=== PATIENT | female | born 1955 | race Caucasian/White ===

== ENCOUNTER 2016-06-25 05:11 | Inpatient (IN) | payer OTHER ==
[2016-05-29 14:38] VITALS: BMI 27.0
--- NOTE | 2016-05-29 15:22 | PAT Medication Instructions ---
Service Date May 29, 2016. Current Home Medication List Acetaminophen (Tylenol), 650 MG PO Q4-6HR PRN Albuterol (Ventolin Hfa), PRN PRN for COPD Atorvastatin (Atorvastatin Calcium), 1 TAB PO QAM Duloxetine Hcl (Cymbalta), 90 MG PO QAM Levothyroxine Sodium (Levothyroxine Sodium), 1 TAB PO QAM Lisinopril (Zestril), 2.5 MG PO QAM Nicotine (Nicoderm Cq), 1 PATCH TOP QAM Sitagliptin Phosphate (Januvia), 100 MG PO QAM Tiotropium Convoy (Spiriva Handihaler), 1 CAP INH DAILY PRN PRN for COPD [Nebulizer], Unknown Dose Medication Instructions For Your Scheduled Surgery - Hold the following medications the morning of surgery: Sitagliptin Phosphate (Januvia), 100 MG PO QAM Lisinopril (Zestril), 2.5 MG PO QAM Nicotine (Nicoderm Cq), 1 PATCH TOP QAM - Take the following medications the morning of surgery with a sip of water: Tiotropium Convoy (Spiriva Handihaler), 1 CAP INH DAILY PRN PRN for COPD ( if needed) Nebulizer Unknown Dose (if needed) Albuterol (Ventolin Hfa), PRN PRN for COPD (bring with you to hospital on day of surgery) Levothyroxine Sodium (Levothyroxine Sodium), 1 TAB PO QAM Duloxetine Hcl (Cymbalta), 90 MG PO QAM Acetaminophen (Tylenol), 650 MG PO Q4-6HR PRN (if needed) Atorvastatin (Atorvastatin Calcium), 1 TAB PO QAM - Take the following medications as scheduled the night before surgery: Tiotropium Convoy (Spiriva Handihaler), 1 CAP INH DAILY PRN PRN for COPD ( if needed) Nebulizer Unknown Dose (if needed) Albuterol (Ventolin Hfa), PRN PRN for COPD (if needed) Acetaminophen (Tylenol), 650 MG PO Q4-6HR PRN (if needed) If you have any questions please call us at [phone] or [phone] ( Sarah) or [phone]
[2016-05-29 15:55] LABS: BASO % 0.2 %; BASO ABS # 0.03 K/uL (0-0.2); COMPLETE YES; EOS % 1.5 %; HEMATOCRIT 42.2 % (37-47); IG% 0.3 %; LYMPH % 34.6 %; LYMPH ABS # 4.35 K/uL (1.2-3.4); MEAN CELL VOLUME 86.1 fL (80-100); MEAN CORPUSCULAR HEMOGLOBIN 30.2 pg (25-34); MEAN CORPUSCULAR HGB CONC 35.1 g/dl (32-36); MEAN PLATELET VOLUME 10.8 fL (7.4-10.4); NEUT % 57.4 %; PLATELET COUNT 414 K/uL (130-400); WHITE BLOOD COUNT 12.58 K/uL (4.8-10.8)
[2016-05-29 16:01] LABS: URINE APPEARANCE CLEAR (CLEAR); URINE BILIRUBIN NEG (NEG); URINE COLOR YELLOW; URINE EPITHELIAL CELL AUTO >30 /lpf (0-5); URINE NITRITE NEG (NEG); URINE PH 5.5 (4.5-7.5); URINE SPECIFIC GRAVITY 1.016 (1.000-1.030); UROBILINOGEN NEG (NEG); ZZUR CULT IF INDIC CLEAN CATCH NO
[2016-05-29 16:04] LABS: MANUAL MICROSCOPIC REQUIRED? NO; REVIEW REQ? NO
[2016-05-29 16:08] LABS: PARTIAL THROMBOPLASTIN RATIO 1.1; PROTHROMBIN TIME (PATIENT) 10.7 SECONDS (9.0-12.0)
[2016-05-29 16:22] LABS: BUN/CREATININE RATIO 13.4 (10-20); CALCIUM 9.3 mg/dl (8.5-10.1); CREATININE 0.74 mg/dl (0.60-1.20); POTASSIUM 3.6 mmol/L (3.5-5.1)
--- NOTE | 2016-06-03 18:32 | HISTORY & PHYSICAL EXAMINATION ---
DATE OF ADMISSION: 06/25/2016 CHIEF COMPLAINT: Right hip pain. HISTORY OF PRESENT ILLNESS: This 61-year-old white female presents with complaints of right hip pain that have been ongoing for over a year. Pain was tolerable until December. She is now having difficulty with activities of daily living. Pain is worse with ambulation and weightbearing. It is affecting her sleep. She previously had a left total hip arthroplasty and has done well with this. She elects to proceed with the same on the right. She has tried physical therapy as well as oral pain medications and anti-inflammatories without lasting relief. Preoperative x-rays have been obtained. She elects to proceed with right total hip arthroplasty. PAST MEDICAL HISTORY: Significant for anxiety, diabetes, chronic back pain, osteoarthritis, elevated cholesterol, and hypothyroidism. PREVIOUS SURGERIES: Left total hip replacement in January 2012, discectomy in 1989, cholecystectomy, hysterectomy in 2001, lumbar spine fusion in 2002, and carpal tunnel release in 2014. SOCIAL HISTORY: No ETOH use, occasional tobacco use. The patient lives with her significant other. ALLERGIES: NKDA. KNOWN ALLERGY TO BEE VENOM. CURRENT MEDICATIONS: Atorvastatin 10 mg daily, Cymbalta 30 mg daily, Cymbalta 60 mg daily, Januvia 100 mg p.o. daily, Synthroid 75 mcg p.o. daily, lisinopril 2.5 mg p.o. daily, Nicoderm CQ transdermal patch daily. FAMILY HISTORY: Significant for diabetes and heart disease. REVIEW OF SYSTEMS: Significant for above stated conditions, otherwise unremarkable. PHYSICAL EXAMINATION: GENERAL: Well-developed, well-nourished elderly white female in no acute distress. Sitting on a bed. Alert and oriented. SKIN: Warm and dry with good turgor. No rashes or lesions. No ecchymosis or erythema. HEENT: Normocephalic, atraumatic. Eyes PERRLA, EOMI. Nares patent bilaterally without turbinate enlargement. Oropharynx without erythema or exudate. No lesions noted. Uvula midline. Oral mucosa moist. Upper and lower denture plates are noted. HEART: RRR. No MGR. LUNGS: Clear to auscultation bilaterally. No crackles, rhonchi or wheezing. Fair air movement. ABDOMEN: Mildly obese. Bowel sounds present x4, soft, nontender. No organomegaly. No masses. MUSCULOSKELETAL: Right hip has no obvious asymmetry or deformity. There is discomfort with palpation over the anterior flexion crease. No discomfort with palpation over the quadriceps, greater trochanter, or around the knee. She does have some mild IT band discomfort laterally. External rotation to around 20 degrees, internal rotation of only about 5 degrees, hip flexion to 90 degrees before onset of pain. Ambulatory with a slight limp. NEUROLOGIC: Gross sensation is intact across both lower extremities by soft touch. Peripheral pulses are 2+. Cranial nerves II-XII are intact. DATA: Radiographic imaging previously obtained show end-stage DJD of the right hip. Periarticular osteophytes, subchondral sclerosis, and joint space narrowing are present. IMPRESSION: Right hip end-stage degenerative joint disease. PLAN: Informed written consent was obtained to proceed with right total hip arthroplasty. Postoperative prescriptions for Percocet and Coumadin will be provided at discharge from the hospital. Anticipate discharge to home with 2 weeks of home health services and then outpatient PT. She already has a walker and cane. She will obtain medical clearance from Dr. Romo. LIZBETH
[~2016-06-25] VITALS: Ht 165.1 cm; Wt 74.8 kg
[2016-06-25] VITALS (10 sets, daily range): BP systolic 92–130; BP diastolic 55–83; PULSE 61–88; TEMP 36.5–36.9; O2SAT 94–100; Ht 165.1 cm; Wt 74.8 kg
[~2016-06-25 05:11] MED LIST: ACET-1175 PO; DULO60CA44 PO; LEVO75TA5 PO; LISI-729 PO; LPT10 PO; NEBUMIS38; NICO21DI4 TOP; PRVHFAIN; SITA100T3 PO; SPRIN/30 INH
[2016-06-25] MEDS ORDERED: LACTATED RINGER'S 1000ML IV SCH (06:00)
[2016-06-25] MEDS ORDERED: ROPIVACAINE 5MG/ML 30 ML 150 MG, BUPIVACAINE/EPINEPHR 0.5% MPF 30 ML, KETOROLAC TROMETH... INFIL SCH ×7 (06:00)
[2016-06-25] MEDS ORDERED: TRANEXAMIC ACID INJ 1,000 MG in SODIUM CHLORIDE 0.9% 100ML 100 ML IV SCH ×2 (06:00→14:00)
[2016-06-25] MEDS ORDERED: LACTATED RINGER'S 1000ML 500 ML IV ONE (06:00)
[2016-06-25] MEDS ORDERED: CEFAZOLIN 2000 MG/60 ML D5W 60 ML IV SCH (06:00)
[2016-06-25] MEDS ORDERED: LACTATED RINGER'S 1000ML 1,000 ML IV SCH (06:00)
--- NOTE | 2016-06-25 06:18 | History & Physical Bridge Note ---
H&P Re-Evaluation Bridge Note: I have examined the patient, reviewed the History & Physical and in the interval since the performance of the History & Physical I have noted the following changes of clinical significance: No changes noted
[2016-06-25] MEDS ORDERED: ORTHO JOINT ANESTHETIC ONE (06:34)
[2016-06-25] MEDS ORDERED: POVIDONE-IODINE OP SOLN 30 ML BTL ONE (06:35)
[2016-06-25] MEDS ORDERED: BUPIVACAINE 0.5 % 5 MG/1 ML PF 10ML VIAL ONE (06:40)
[2016-06-25] MEDS ORDERED: MIDAZOLAM HCL 1 MG/ML 2ML VIAL ONE (06:42)
[2016-06-25] MEDS ORDERED: FENTANYL CITRATE INJ 50 MCG/1 ML 2 ML VIAL ONE (07:31)
[2016-06-25] MEDS ORDERED: LIDOCAINE HCL 2% 2 ML VIAL (20MG/ML) ONE (07:36)
[2016-06-25] MEDS ORDERED: PROPOFOL IV EMULSION 10 MG/ML 20 ML VIAL IV ONE (07:36)
[2016-06-25] MEDS ORDERED: PHENYLEPHRINE 100MCG/ML 5ML SYR ONE (08:11)
--- NOTE | 2016-06-25 08:17 | [facility] Post Operative Brief Note ---
Immediate Operative Summary Operative Date Jun 25, 2016. Pre-Operative Diagnosis Right hip end-stage degenerative joint disease Post-Operative Diagnosis Right hip end-stage degenerative joint disease Procedure(s) Performed Right Total Hip Arthroplasty Uncemented Surgeon Dr. Romero Second Crusher Surgeon(s) Bryan Barnes-PAC Estimated Blood Loss 100 ML Findings severe djd Fluids (cc crystalloids) 1600cc Specimens A: Right femoral head Drains none Anesthesia spinal Complication(s) None Disposition Recovery Room / PACU
[2016-06-25] MEDS ORDERED: SODIUM CHLORIDE 0.9% 1000ML 1,000 ML IV SCH (08:22)
[2016-06-25] MEDS ORDERED: ONDANSETRON INJ 2 MG/ML 2 ML VIAL IV PRN (08:30)
[2016-06-25] MEDS ORDERED: DiphenhydrAMINE HCL 50 MG/ML VIAL IV PRN (08:30)
[2016-06-25] MEDS ORDERED: BISACODYL 10 MG SUPP PR PRN (08:30)
[2016-06-25] MEDS ORDERED: MAGNESIUM HYDROXIDE SUSP 30 ML UDC PO PRN (08:30)
[2016-06-25] MEDS ORDERED: ALUMINUM/MAGNESIUM/SIMETH (MAALOX MAX) 30 ML UDC PO PRN (08:30)
[2016-06-25] MEDS ORDERED: MoRPHine SULFATE 2 MG/ML CARP IV PRN (08:30)
[2016-06-25] MEDS ORDERED: METOCLOPRAMIDE HCL INJ 5 MG/ML 2 ML VIAL IV PRN (08:30)
[2016-06-25] MEDS ORDERED: ALBUTEROL HFA 8 GM INHALER INH PRN (08:30)
--- NOTE | 2016-06-25 08:39 | OPERATIVE REPORT ---
DATE OF OPERATION: 06/25/2016 SURGEON: Dr. Romero. DIRECTOR ELECTRICAL ENGINEERING: Eusebio Barnes PA-C. No resident or fellow available. PREOPERATIVE DIAGNOSIS: Osteoarthritis, right hip. POSTOPERATIVE DIAGNOSIS: Same. OPERATION PERFORMED: Noncemented right total hip replacement. SUMMARY OF IMPLANTS: 54 acetabular shell sector cup with Gription, cancellous screw 6.5 x 30, liner 36 x 54 neutral, femoral stem 4 high offset, head is 36, +5. ESTIMATED BLOOD LOSS: 100 mL CRYSTALLOID: 1600 mL DVT prophylaxis per protocol. PERIOPERATIVE SITUATION: Medically cleared female with intractable hip pain, has end-stage disease by exam and by x-ray, wants to proceed with hip replacement. Had hip replacement done on the left side in 2011 and has done fine with that. She is aware of all the complications. PROCEDURE IN DETAIL: The patient appropriately identified, site verified, consent verified, 2 grams of Ancef confirmed as being given. The right lower extremity was prepped and draped in usual routine fashion with the patient in left lateral decubitus position. Posterior approach to the hip was made. Sharp dissection carried to skin and blunt dissection down to the fascia. This was then incised under direct vision. Retractors carefully placed to protect the sciatic nerve. The short external rotators were identified and released. The capsule T'd, hip dislocated, femoral neck resected, appropriate acetabular exposure obtained. Labrum was inverted and torn, it was excised. Serial reaming up to a 54 and a 54 cup impacted into excellent anteversion and inclination. It was then additionally fixed with a 6.5 x 30 screw with excellent purchase. The trial liner then seated. The femur was then flexed and internally rotated. The proximal femur prepared with the boxing machine operator, lateralizing rasp, and serial broaching up to a size 4. Trial reduction with a 4 high offset stem gave excellent leg lengths and excellent stability with a +5 head. All trial implants were then removed. The wound was irrigated with Betadine, Pulsavac. Hole eliminator seated, permanent liner seated, permanent head and stem seated. The hip reduced, it was stable in all planes, and then irrigated one final time with Betadine, Pulsavac, and then closed with 2-0 Vicryl and stainless steel clips, Orthomix injected in the superficial layers. Appropriate dressing applied. The patient was then transferred to the recovery room in satisfactory condition, having tolerated the procedure well. I attest to the content of the Intraoperative Record and any orders documented therein. Any exceptio ns are noted below.
[2016-06-25] MEDS ORDERED: ATROPINE SULFATE 0.1 MG/ML 5ML SYR IV PRN (08:45)
[2016-06-25] MEDS ORDERED: GLUCOSE 40% GEL 15 GM TUBE PO PRN (08:45)
[2016-06-25] MEDS ORDERED: GLUCOSE 10 TABS/TUBE PO PRN (08:45)
[2016-06-25] MEDS ORDERED: EpHEDrine SULFATE INJ 50 MG/ML AMP IV PRN (08:45)
[2016-06-25] MEDS ORDERED: GLUCAGON FOR INJ 1 MG VIAL SQ PRN (08:45)
[2016-06-25] MEDS ORDERED: DEXTROSE 50% 50 ML SYR IV PRN (08:45)
[2016-06-25] MEDS ORDERED: LISINOPRIL 2.5 MG TAB PO SCH (09:00)
--- NOTE | 2016-06-25 09:01 | DIAGNOSTIC IMAGING REPORT ---
SINGLE VIEW PELVIS CLINICAL HISTORY: Postoperative examination. FINDINGS: An AP portable view of the hips and lower pelvis is compared to study dated 07/03/2014. A bipolar right hip arthroplasty is new from previous and in near anatomic alignment. At least 1 cortical lag screw transfixes the acetabular cup. A left hip arthroplasty is unchanged from previous. No acute fracture is seen. There are expected postoperative findings overlying the right hip including skin clips, subcutaneous gas, and soft tissues swelling. Phleboliths are noted in the pelvis. IMPRESSION: Expected postoperative findings status post right hip arthroplasty. No acute fracture is seen. Electronically signed by: Meek Eduardo M.D. 06/25/2016 8:59 AM Dictated Date/Time: 06/25/2016 8:58 AM
--- NOTE | 2016-06-25 09:32 | Anesthesiology Progress Note ---
Anesthesia Post Op Note Date & Time Jun 25, 2016 at 09:31 Vital Signs Pain Intensity: 0 Vital Signs Past 12 Hours Date Time Temp Pulse Resp B/P Pulse Ox O2 Delivery O2 Flow Rate FiO2 06/25/16 09:20 36.4 75 15 102/56 98 Nasal Cannula 2 06/25/16 09:10 66 17 104/54 99 Nasal Cannula 2 06/25/16 09:00 66 15 90/63 100 Nasal Cannula 2 06/25/16 08:50 76 14 88/58 100 Nasal Cannula 2 06/25/16 08:40 67 14 93/59 100 Mask 10 06/25/16 08:30 73 17 131/60 100 Mask 10 06/25/16 08:20 36.2 76 16 108/79 99 Mask 10 06/25/16 05:40 36.7 77 18 121/71 97 Room Air Notes Mental Status: alert / awake / arousable, participated in evaluation Pt Amnestic to Procedure: Yes Nausea / Vomiting: adequately controlled Pain: adequately controlled Airway Patency, RR, SpO2: stable & adequate BP & HR: stable & adequate Hydration State: stable & adequate Neuraxial Anesthesia: was administered, sensory block is resolving Anesthetic Complications: no major complications apparent
--- NOTE | 2016-06-25 10:37 | Medical Consult ---
Consultation Date of Consultation: Jun 25, 2016. Attending Physician: David Romero M.D. Reason for Consultation: Medical management History of Present Illness Patient is a 61 y/o female, with PMHx of anxiety, T2DM, chronic back pain, osteoarthritis, h/o recurrent bronchitis/allergies, HTN, dyslipidemia, and hypothyroidism, s/p right total hip arthroplasty on 06/[address] Romero. Patient states she is feeling well. She ate breakfast with no N/V. She denies any significant pain. No BM/flatus postop. Patient denies any fever, chills, sweats, lightheadedness, dizziness, vision changes, CP, palpitations, edema, SOB , wheezing, cough, abdominal pain, nausea, vomiting, diarrhea, urinary symptoms , melena, numbness/tingling, weakness, muscle/joint pain, anxiety/depression, active bleeding, or new skin discoloration/changes. Past Medical/Surgical History PAST MEDICAL HISTORY: 1. Anxiety 2. T2DM 3. Chronic back pain 4. Osteoarthritis 5. Dyslipidemia 6. Hypothyroidism 7. HTN 8. h/o recurrent bronchitis/allergies PREVIOUS SURGERIES: 1. Left total hip replacement in January 2012 2. Discectomy in 1989 3. Cholecystectomy 4. Hysterectomy in 2001 5. Lumbar spine fusion in 2002 6. Carpal tunnel release in 2014 Family History 1. Diabetes 2. Heart disease Social History Smoking Status: Current Every Day Smoker Allergies Coded Allergies: No Known Allergies (Unverified , 06/25/16) Home Medications Reported Home Medications Medications Dose Route/Sig Max Daily Dose Days Date Category Dose Instructions Ventolin Hfa (Albuterol) 60 Puffs/5400 Mcg Aers PRN PRN 05/29/16 Reported USES ONLY PRN - HASN'T USED IN A LONG TIME Atorvastatin Calcium (Atorvastatin) 10 Mg Tab 1 Tab PO QAM 05/29/16 Reported Zestril (Lisinopril) 5 Mg Tab 2.5 Mg PO QAM 05/29/16 Reported Januvia (Sitagliptin Phosphate) 100 Mg Tab 100 Mg PO QAM 05/29/16 Reported Levothyroxine Sodium 75 Mcg Tab 1 Tab PO QAM 05/29/16 Reported Spiriva Handihaler (Tiotropium [place]) 30 Puff/540 Mcg Aerp 1 Cap INH DAILY PRN PRN 02/12/12 Reported Tylenol (Acetaminophen) 325 Mg Tab 650 Mg PO Q4-6HR PRN 02/12/12 Reported Cymbalta (Duloxetine Hcl) 60 Mg Cap 90 Mg PO QAM 01/19/12 Reported Current Inpatient Medications Current Inpatient Medications Medications (Trade) Dose Ordered Sig/Clary Route Start Time Stop Time Status Last Admin Dose Admin Lactated Ringer's 1,000 ml @ 15 mls/hr Q24H IV 06/25/16 06:00 06/26/16 05:59 06/25/16 06:14 15 MLS/HR Lactated Ringer's 1,000 ml @ 60 mls/hr [id number] IV 06/25/16 06:00 06/25/16 22:39 Cefazolin Sodium 60 ml @ 100 mls/hr PREOP IV 06/25/16 06:00 06/26/16 05:59 06/25/16 06:53 100 MLS/HR Tranexamic Acid 1000 mg/Sodium Chloride 110 ml @ 660 mls/hr TODAY@0600 IV 06/25/16 06:00 06/25/16 16:00 06/25/16 06:22 660 MLS/HR Ropivacaine 150 mg/Bupivacaine HCl/Epinephrine Bitart 30 ml/ Ketorolac Tromethamine 30 mg/Dexamethasone Sodium Phosphate 4 mg/Ketamine HCl 10 mg/Clonidine 100 mcg/Sodium Chloride 30 ml/ Empty Bag 93.2 ml @ 0 mls/hr PREOP INFIL 06/25/16 06:00 06/25/16 16:00 06/25/16 08:00 93.2 MLS/HR Sodium Chloride (Nss 1000ml) 1,000 ml @ 100 mls/hr Q10H IV 06/25/16 08:22 06/26/16 08:21 Ketorolac Tromethamine (Toradol Inj) 30 mg Q6H IV. 06/25/16 12:00 06/26/16 06:01 Oxycodone HCl (Roxicodone Immediate Rel Tab) 1 TABLET FOR PAIN RATING... Q4H PRN PO 06/25/16 08:30 07/09/16 08:29 Morphine Sulfate give 2mg for pain 3-6 g... Q1H PRN IV 06/25/16 08:30 07/09/16 08:29 Acetaminophen/ Empty Bag (Ofirmev Iv/ Empty Iv Bag 100ml) 100 ml @ 400 mls/hr Q8H IV 06/25/16 12:00 06/26/16 04:14 Acetaminophen (Tylenol Tab) 650 mg Q6H PRN PO 06/26/16 04:30 07/26/16 04:29 Magnesium Hydroxide (Milk Of Magnesia Susp) 30 ml Q6H PRN PO 06/25/16 08:30 07/25/16 08:29 Bisacodyl (Dulcolax Supp) 10 mg DAILY PRN AL 06/25/16 08:30 07/25/16 08:29 Docusate Sodium (coLACE CAP) 100 mg BID PO 06/25/16 09:00 07/25/16 08:59 Diphenhydramine HCl (Benadryl Inj) 25 mg Q8H PRN IV 06/25/16 08:30 07/25/16 08:29 Al Hydrox/Mg Hydrox/Simethicone (Maalox Max Susp) 15 ml Q4H PRN PO 06/25/16 08:30 07/25/16 08:29 Multivitamins (Multivitamin Tab) 1 tab QAM PO 06/25/16 09:00 07/25/16 08:59 Ondansetron HCl (Zofran Inj) 4 mg Q6H PRN IV 06/25/16 08:30 07/25/16 08:29 Metoclopramide HCl (Reglan Inj) 10 mg Q6H PRN IV 06/25/16 08:30 07/25/16 08:29 Ferrous Gluconate (Ferrous Gluconate Tab) 324 mg TIDM PO 06/25/16 12:30 07/25/16 12:29 Pantoprazole Sodium 40 mg 40 mg QAM PO 06/25/16 09:00 07/25/16 08:59 Cefazolin Sodium 2000 mg/Dextrose 60 ml @ 100 mls/hr Q8H IV 06/25/16 16:00 06/26/16 00:35 Tranexamic Acid 1000 mg/Sodium Chloride 110 ml @ 660 mls/hr TODAY@1400 IV 06/25/16 14:00 06/25/16 14:09 Dexamethasone Sodium Phosphate/ Syringe (Decadron Inj/ Syringe) 2 ml @ 1 mls/min TODAY@0730 IV 06/26/16 07:30 06/26/16 10:00 Albuterol (Ventolin Hfa Inhaler) 2 puffs Q4 PRN INH 06/25/16 08:30 07/25/16 08:29 Atorvastatin Calcium (Lipitor Tab) 10 mg QAM PO 06/25/16 09:00 07/25/16 08:59 Duloxetine HCl (Cymbalta Cap) 90 mg QAM PO 06/25/16 09:00 07/25/16 08:59 Levothyroxine Sodium (Synthroid Tab) 75 mcg DAILYBB PO 06/26/16 06:00 07/26/16 05:59 Lisinopril (Zestril Tab) 2.5 mg QAM PO 06/25/16 09:00 07/25/16 08:59 Tiotropium [place] (Spiriva Handihaler Inhaler) 1 puff QAM INH 06/25/16 09:00 07/25/16 08:59 Insulin Aspart (novoLOG ASPART) SLIDING SCALE G... ACHS SC 06/25/16 12:00 07/25/16 11:59 Glucose (Glucose 40% Gel) 15-30 GRAMS 15 GRAMS... UD PRN PO 06/25/16 08:45 07/25/16 08:44 Glucose (Glucose Chew Tab) 4-8 Tablets 4 Tabl... UD PRN PO 06/25/16 08:45 07/25/16 08:44 Dextrose (Dextrose 50% 50ML Syringe) 25-50ML OF 50% DW IV FOR... UD PRN IV 06/25/16 08:45 07/25/16 08:44 Glucagon (Glucagon Inj) 1 mg UD PRN SQ 06/25/16 08:45 07/25/16 08:44 Ephedrine Sulfate (EpHEDrine SULFATE INJ) 5 mg Q5M PRN IV 06/25/16 08:45 06/25/16 13:45 Atropine Sulfate (Atropine Sulfate 0.1MG/Ml Inj) 0.5 mg Q1M PRN IV 06/25/16 08:45 06/25/16 13:45 Physical Exam Date Time Temp Pulse Resp B/P Pulse Ox O2 Delivery O2 Flow Rate FiO2 06/25/16 10:16 73 16 114/73 100 Nasal Cannula 2.0 06/25/16 09:20 36.4 75 15 102/56 98 Nasal Cannula 2 06/25/16 09:10 66 17 104/54 99 Nasal Cannula 2 06/25/16 09:00 66 15 90/63 100 Nasal Cannula 2 06/25/16 08:50 76 14 88/58 100 Nasal Cannula 2 06/25/16 08:40 67 14 93/59 100 Mask 10 06/25/16 08:30 73 17 131/60 100 Mask 10 06/25/16 08:20 36.2 76 16 108/79 99 Mask 10 06/25/16 05:40 36.7 77 18 121/71 97 Room Air General Appearance: no apparent distress Head: normocephalic, atraumatic Eyes: normal inspection, PERRL ENT: hearing grossly normal Neck: supple Respiratory/Chest: lungs clear Cardiovascular: regular rate, rhythm Abdomen/GI: normal bowel sounds, non tender, soft Back: normal inspection Extremities/Musculoskelatal: no calf tenderness, no pedal edema, + pertinent finding (TEDs on ) Neurologic/Psych: alert, normal mood/affect, oriented x 3 Skin: normal color, warm/dry, no rash Laboratory Results Last 24 Hours Test 06/25/16 05:50 06/25/16 08:25 Bedside Glucose 253 mg/dl 150 mg/dl Assessment & Plan Patient is a 61 y/o female, with PMHx of anxiety, T2DM, chronic back pain, osteoarthritis, h/o recurrent bronchitis/allergies HTN, dyslipidemia, and hypothyroidism, s/p right total hip arthroplasty on 06/[address] Romero. - DVT prophylaxis, pain management, and PT/OT as per primary team - Follow CBC/PRP T2DM: - Hold Januvia 100 mg daily - BSG ACHS w/ sliding insulin scale - Monitor need for Lantus coverage w/ IV steroids HTN: - Hold Lisinopril pending PRP tomorrow AM - Hydralazine PRN Hypothyroidism: Continue Synthroid 75 mcg daily Dyslipidemia: Continue Lipitor 10 mg daily h/o recurrent bronchitis/allergies, ?underlying COPD w/ smoking history: - Continue Spiriva and Ventolin - O2 protocol, wean as tolerated- does NOT wear O2 supplement at home Tobacco abuse: Denies need for nicotine patch Anxiety: Continue Cymbalta 60 mg daily GI Prophylaxis: Protonix, Maalox PRN, IV Zofran PRN, Colace and/or Milk of Mag PRN DVT prophylaxis: As per primary team Code Status: LEVEL I, FULL Dispo: Discharge as per primary team Thank you for this consultation. We will continue to follow throughout hospital stay.
[2016-06-25] MEDS ORDERED: HydrALAZINE HCL 20 MG/ML VIAL IV. PRN (10:45)
[2016-06-25] MEDS: KETOROLAC TROMETHAMINE 30 MG/ML VIAL IV. SCH ×3 (11:55→23:24)
[2016-06-25] MEDS: ACETAMINOPHEN IV 1,000 MG in EMPTY BAG 0 ML IV SCH ×2 (11:56→19:56)
[2016-06-25] MEDS: TIOTROPIUM BROMIDE 5 PUFF/90 MCG INH INH SCH (11:57)
[2016-06-25] MEDS: MULTIVITAMIN TAB PO SCH (11:58)
[2016-06-25] MEDS: PANTOprazole SOD 40 MG TAB PO SCH (11:58)
[2016-06-25] MEDS: FERROUS GLUCONATE 324 MG TAB PO SCH ×2 (11:59→18:00)
[2016-06-25] MEDS: DULOXETINE (CYMBALTA) 30 MG CAP PO SCH (11:59)
[2016-06-25] MEDS: ATORVASTATIN 10 MG TAB PO SCH (12:00)
[2016-06-25] MEDS: DOCUSATE SODIUM 100 MG CAP PO SCH ×2 (12:00→21:03)
[2016-06-25] MEDS ORDERED: INSULIN GLARGINE PER UNIT 8 UNITS in SYRINGE 0 ML SC ONE (12:30)
--- NOTE | 2016-06-25 12:40 | OPERATIVE REPORT ---
DATE OF OPERATION: 06/25/2016 PREOPERATIVE DIAGNOSIS: Right hip endstage degenerative joint disease. POSTOPERATIVE DIAGNOSIS: Right hip same. PROCEDURE: Right hip total hip arthroplasty using DePuy implants, noncemented. SURGEON: Dr. Romero. FERRIS WHEEL OPERATOR: Eusebio Barnes PA-C. HISTORY OF PRESENT ILLNESS: This 61-year-old white female presented to the office with complaints of intractable right hip pain. She had tried conservative care measures including activity modification, oral pain medication, and use of a cane without success. She elected to proceed with surgical intervention after being educated about potential risks and outcomes. She previously had a left total hip arthroplasty and did very well with that. Preoperative x-rays were obtained. OPERATION: The patient was administered spinal anesthetic and then taken to the operating room where she was given sedation. She was prepped and draped in the usual sterile fashion. Please see Dr. Romero's operative report for specifics of the procedure. I was present for the entire case from initial patient positioning through final wound closure. Assistance was provided in tissue retraction, hemostasis, trial implant placement, final implant placement, and final wound closure. The patient was taken to the recovery room in satisfactory condition. I attest to the content of the Intraoperative Record and any orders documented therein. Any exceptio ns are noted below.
[2016-06-25] MEDS ORDERED: LANTUS PER UNIT CHARGE SQ SCH (12:45)
--- NOTE | 2016-06-25 12:47 | PROGRESS NOTE ---
DATE: 06/25/2016 Postop check, she is doing well status post right total hip replacement. Denies any chest pain, shortness of breath, fever, nausea, vomiting, chills or headache. She is eating her dinner, sitting up. She is very comfortable. Her spinal has worn off. Vital signs are stable. She is afebrile. Neurovascular check, femoral sciatic nerve is excellent. Her hips are located. X-RAYS: AP pelvis and hips reveals well-fixed, well-aligned hip replacement on the right and the old hip replacement is located. ASSESSMENT: Overall doing well. Continue with care pathway. Mobilize tonight. Coumadin per nomogram.
[2016-06-25] MEDS: INSULIN ASPART 100 UNITS/ML 3 ML PEN SC SCH ×3 (13:12→21:14)
[2016-06-25] MEDS: OXYCODONE HCL IR 5 MG TAB (IMMEDIATE RELEASE) PO PRN (15:47)
[2016-06-25] MEDS: CEFAZOLIN IV 2,000 MG in DEXTROSE 5% 50ML 50 ML IV SCH ×2 (15:48→23:23)
[2016-06-25] MEDS ORDERED: WARFARIN SOD 5 MG TAB PO ONE (16:00)
[2016-06-26 03:30] VITALS: BP 107/70; PULSE 79; TEMP 36.6; O2SAT 97
[2016-06-26] MEDS: ACETAMINOPHEN IV 1,000 MG in EMPTY BAG 0 ML IV SCH (03:48)
[2016-06-26] MEDS ORDERED: ACETAMINOPHEN 325 MG TAB PO PRN (04:30)
[2016-06-26] MEDS: KETOROLAC TROMETHAMINE 30 MG/ML VIAL IV. SCH (05:42)
[2016-06-26] MEDS ORDERED: LEVOTHYROXINE 75 MCG TAB PO SCH (06:00)
[2016-06-26 06:10] LABS: BASO % 0.1 %; BASO ABS # 0.02 K/uL (0-0.2); COMPLETE YES; EOS % 0.1 %; HEMATOCRIT 35.4 % (37-47); IG% 0.3 %; LYMPH % 16.2 %; LYMPH ABS # 2.45 K/uL (1.2-3.4); MEAN CELL VOLUME 86.8 fL (80-100); MEAN CORPUSCULAR HEMOGLOBIN 29.7 pg (25-34); MEAN CORPUSCULAR HGB CONC 34.2 g/dl (32-36); MEAN PLATELET VOLUME 10.5 fL (7.4-10.4); MONO % 8.7 %; NEUT % 74.6 %; PLATELET COUNT 318 K/uL (130-400); RED BLOOD COUNT 4.08 M/uL (4.2-5.4); WHITE BLOOD COUNT 15.12 K/uL (4.8-10.8)
[2016-06-26 06:20] LABS: INR 1.1 (0.9-1.1); PROTHROMBIN TIME (PATIENT) 11.3 SECONDS (9.0-12.0)
[2016-06-26 06:53] LABS: BUN/CREATININE RATIO 15.3 (10-20); CALCIUM 9.1 mg/dl (8.5-10.1); CREATININE 0.76 mg/dl (0.60-1.20); POTASSIUM 3.9 mmol/L (3.5-5.1)
[2016-06-26 07:02] VITALS: BP 114/69; PULSE 90; TEMP 36.6; O2SAT 100
--- NOTE | 2016-06-26 07:25 | PROGRESS NOTE ---
DATE: 06/26/2016 Postop day 1 status post right total hip replacement. At this point in time, the patient is comfortable sitting up in bed and has no major issues. Denies chest pain, shortness of breath, fever, chills, nausea, vomiting or headache. Vital signs are stable. She is afebrile. Hip located. Femoral sciatic nerve intact. Calves without any issues. LABORATORY WORK: Hematocrit stable in the 35 range. INR is 1.1. Dressing clean, dry and intact. ASSESSMENT: Doing well. Will discharge after PT, OT today. Dressing changed by PA this morning. Coumadin per nomogram today. Discharge on 4 mg Coumadin daily. Check INR on Thursday.
[2016-06-26] MEDS ORDERED: DEXAMETHASONE INJ 8 MG in SYRINGE 0 ML IV SCH (07:30)
--- NOTE | 2016-06-26 07:34 | DISCHARGE SUMMARY ---
DATE OF DISCHARGE: 06/26/2016 CHIEF COMPLAINT: Right hip pain. HISTORY OF PRESENT ILLNESS: The patient underwent elective right total hip replacement. Her hospital course has been uneventful. She has been ambulatory since last evening. Her pain is well managed. She denies any chest pain, shortness of breath, fever, chills, nausea, vomiting or headache. PAST MEDICAL HISTORY: Remarkable for anxiety, diabetes, chronic back pain, osteoarthritis, hypercholesterolemia and hypothyroidism. PREVIOUS SURGERIES: Include left hip replacement in 2011, discectomy in 1989, cholecystectomy, hysterectomy in 2001, lumbar spine fusion in 2002, carpal tunnel release 2014. SOCIAL HISTORY: Reveals that she does not drink, only uses occasional alcohol. She lives with her significant other. ALLERGIES: None to medications. BEE VENOM ALLERGY. PREADMISSION MEDICATIONS: Include atorvastatin, Cymbalta, Januvia, Synthroid, lisinopril and Nicoderm. She will continue all those medications. Add Coumadin to keep INR 1.8-2.2. Also use p.r.n. pain management, see prescription. FAMILY HISTORY: Remarkable for diabetes and heart disease. REVIEW OF SYSTEMS: Noncontributory. ASSESSMENT: Doing well status post right total hip replacement. PLAN: To discharge today after PT/OT and social service assessment with home health issues. Follow up in 2 weeks for staple removal. Coumadin per nomogram today. Discharge on 4 mg of Coumadin daily. Check INR on Thursday.
--- NOTE | 2016-06-26 08:09 | Progress Note ---
Orthopedic SOAP Note Subjective Date of Service: Jun 26, 2016. Post OP Day: 1 Reports: feeling well, pain controlled w PO medications, Denies: SOB, calf pain , chest pain, complaints, light headedness, nausea / vomiting, using SENIOR DESIGNER Objective calves soft nontender, N/V intact, hip located, capillary refill less than 2 sec., dressing C/D/I, incision C/D/I, A&O x3, toes mobile very pleasant tolerated dressing change well well mobilized Date Time Temp Pulse Resp B/P Pulse Ox O2 Delivery O2 Flow Rate FiO2 06/26/16 07:20 Room Air 06/26/16 07:02 36.6 90 17 114/69 100 Room Air 06/26/16 03:30 36.6 79 16 107/70 97 Room Air 06/25/16 23:50 36.6 69 16 92/55 99 Room Air 104/68 06/25/16 23:18 Room Air 06/25/16 18:53 36.8 86 17 112/71 94 Room Air 06/25/16 15:42 36.8 87 17 124/74 94 Nasal Cannula 3.0 06/25/16 15:24 98 Nasal Cannula 2.0 06/25/16 15:15 Nasal Cannula 2.0 06/25/16 12:41 86 16 130/83 98 Nasal Cannula 2.0 06/25/16 11:47 36.9 88 14 110/63 99 Nasal Cannula 06/25/16 10:49 61 16 113/78 98 Nasal Cannula 2.0 06/25/16 10:16 73 16 114/73 100 Nasal Cannula 2.0 06/25/16 09:45 36.5 70 12 109/68 100 Nasal Cannula 2.0 06/25/16 09:45 Room Air 06/25/16 09:45 Nasal Cannula 06/25/16 09:20 36.4 75 15 102/56 98 Nasal Cannula 2 06/25/16 09:10 66 17 104/54 99 Nasal Cannula 2 06/25/16 09:00 66 15 90/63 100 Nasal Cannula 2 06/25/16 08:50 76 14 88/58 100 Nasal Cannula 2 06/25/16 08:40 67 14 93/59 100 Mask 10 06/25/16 08:30 73 17 131/60 100 Mask 10 06/25/16 08:20 36.2 76 16 108/79 99 Mask 10 Laboratory Results 24 Hours: Test 06/26/16 05:10 White Blood Count 15.12 K/uL Red Blood Count 4.08 M/uL Hemoglobin 12.1 g/dL Hematocrit 35.4 % Mean Corpuscular Volume 86.8 fL Mean Corpuscular Hemoglobin 29.7 pg Mean Corpuscular Hemoglobin Concent 34.2 g/dl Platelet Count 318 K/uL Mean Platelet Volume 10.5 fL Neutrophils (%) (Auto) 74.6 % Lymphocytes (%) (Auto) 16.2 % Monocytes (%) (Auto) 8.7 % Eosinophils (%) (Auto) 0.1 % Basophils (%) (Auto) 0.1 % Neutrophils # (Auto) 11.28 K/uL Lymphocytes # (Auto) 2.45 K/uL Monocytes # (Auto) 1.31 K/uL Eosinophils # (Auto) 0.02 K/uL Basophils # (Auto) 0.02 K/uL Prothromb Time International Ratio 1.1 Prothrombin Time 11.3 SECONDS Assessment post op day 1 s/p Right SUSIE Plan continue post op care DVT prophylaxis Coumadin x 6 weeks target INR 1.8-2.2 discharge home on 4mg Coumadin pain control with prescribed medications total hip precautions PT/OT dressing changed this AM WBAT right lower extremity with walker resume diet ice right hip abduction pillow while in bed discharge home this afternoon with home health
[2016-06-26] MEDS ORDERED: WARF2TAB PO (08:10)
[2016-06-26] MEDS ORDERED: OXYC-57 PO (08:10)
--- NOTE | 2016-06-26 08:11 | Discharge Instructions ---
Discharge Instructions Date of Service Jun 25, 2016. Admission Reason for Admission: Right Hip Osteoarthritis Discharge Discharge Diagnosis / Problem: Right hip s/p total hip replaceement Discharge Goals Goal(s): Decrease discomfort, Improve function, Increase independence Activity Recommendations Activity Limitations: as noted below Lifting Limitations: gradually increase as tolerated Exercise/Sports Limitations: until after follow-up appointment Shower/Bathe: keep incision dry Driving or Machine Use: No driving until cleared by Dr. Romero Weightbearing Status: Right weightbearing (as tolerated) . Instructions / Follow-Up Instructions / Follow-Up New Medicine: * You will likely be taking one or more of these medicines: 1. Percocet - Take, as directed, when you need it, every four to six hours to control your pain. 2. Coumadin - Thins your blood to lessen the chance of forming a blood clot. The dose of this is different for each person and is based on your blood tests that are done twice a week. * The most common side effects of pain medicine and iron are nausea and constipation. If nausea or constipation is too much of a problem or if you have any questions about your new medicines or doses, call [facility] at . We will try to help you manage these issues. VERY IMPORTANT TO READ AND REVIEW" Blood Clots and Blood Thinning Medicine: * You are given Coumadin during the immediate post-operative period to lessen the risk of blood clots forming in your legs and/or lungs. Coumadin is usually given for six weeks after surgery. * The prescription is for 2 mg tablets. At discharge, you should understand your dose and take it all at the same time every day, preferably after dinner. * You need to get your blood checked 1 - 2 times per week for six weeks, or as directed. * If your dose needs to change, we will call you. Do not take your medication on the day of the blood test until we call you. * If you don't hear from us after your blood draws, keep taking the same dose. Pain: * The immediate post-operative period after hip replacement surgery is often quite painful. * You are given a prescription for pain medicine. You should take it, as directed, when you need it, especially before physical therapy and before going to bed. Pain that interferes with sleep is very common and can last several months. * You will likely need pain medicine for the first two to four weeks. It will not stop all of the pain. The pain will lessen and as you feel better, you may change to milder pain medicine such as Tylenol. * The most common side effects of pain medicine are nausea and constipation, so don't take more than you need. Physical Therapy: * Follow the "Hip Precautions Instructions." * In some cases, the social work msw at the hospital will arrange to have a therapist come to your house for the first couple of weeks to help you learn these skills. * You need to practice on your own or with the help of a family member as needed. * When you learn these skills, most of the therapy can be done on your own. Home Exercise: * You were shown a series of exercises in the hospital. Do these exercises three to four times each day including the exercises you were shown in physical therapy. Walking: * Get up and walk several times each day. For the first four weeks, try not to stand or walk for more than one hour at a time. If you do stand or walk for more than one hour, you will not hurt anything, but your leg will likely swell. * As you feel comfortable, you may change from the walker or crutches to a cane and then to independent walking. SELF CARE INSTRUCTIONS AFTER TOTAL HIP REPLACEMENT Until the incision and soft tissues around your hip have healed, there is a possibility that the hip prosthesis could dislocate. A. Observe the following precautions to prevent dislocation: 1. Don't bend your hip greater than 90 degrees. 2. Avoid crossing your legs or ankles while standing or lying. 3. Sit with your feet placed 6 inches apart. 4. When sitting, keep your knees below your hips. Sit on a firm surface, avoid deep, soft chairs and couches. Use an elevated toilet seat in the bathroom. 5. Don't bend over at the waist. Use a long handled shoehorn and a sock aid to help you put on your shoes and socks. A modeling agent can help you cook pickled meat objects that are too high or too low to reach. 6. Keep car riding to a minimum for at least one month after surgery. B. Your balance may be shaky for a while. Use crutches or a walker until directed by your doctor. C. Use hand rails when walking on stairs. D. Wear low heeled shoes with non-slip soles. E. Be sure that your floors are free of things that could trip you - throw rugs , electrical cords, small objects. Avoid wet and waxed floors, especially with crutches and canes. F. Try to walk several times a day with rest periods between. G. Continue with all the exercises taught to you in the hospital. Again, make walking a part of your daily routine. VERY IMPORTANT TO READ AND REVIEW A. Take Coumadin, or Lovenox (blood thinning medications) as directed by your doctor. If you are on Coumadin, have a pro-time (blood test) drawn according to your doctor's instructions. This will tell the doctor how well the Coumadin is thinning your blood. B. There are a few signs you need to watch for after you are home. If you notice any of the followin. Increased severe hip pain. Some pain is expected especially when you exercise. 2. Increased swelling in your leg or knee; pain or swelling of the calf muscle in either lower leg. 3. Any fluid drainage from the incision. 4. Shortness of breath or chest pain. TEDs/Elastic Stockings: * The white elastic stockings help limit swelling and prevent blood clots from forming in your legs. The more you wear them, the more they work. * Wear them for six weeks. Prevention of Infection: * Take antibiotics one hour before any dental cleaning, dental work, urological procedure, gastrointestinal procedure or any invasive surgery in order to prevent your new joint from getting infected. * You may get the antibiotics from the doctor performing the procedure or we will call in a prescription to the pharmacy of your choice. Call the office for a prescription at least 2 days prior to your appointment. Things to Watch For: * Drainage from the incision site that occurs more than one week after your surgery. * Severely increased leg pain or swelling. * Increased redness at the incision site. * Fever above 101 degrees Fahrenheit. * Unusual chest pain or shortness of breath. * Unusual pain or burning with urination. Current Hospital Diet Patient's current hospital diet: Diabetes Type 2 Diet Discharge Diet Recommended Diet: Diabetes Type 2 Diet Procedures Procedures Performed: Right Total Hip Arthroplasty Uncemented Pending Studies Studies pending at discharge: no Medical Emergencies . Who to Call and When: Medical Emergencies: If at any time you feel your situation is an emergency, please call 911 immediately. . Non-Emergent Contact Non-Emergency issues call your: Primary Care Provider, Surgeon Call Non-Emergent contact if: temperature is above 101, wound has increased drainage, wound has increased redness, wound has increased pain . "Provider Documentation" section prepared by Eusebio Barnes PA-C. VTE Core Measure Inpt VTE Proph given/why not?: Warfarin (Coumadin), TPam Stockings, SCD's [place] Drug Monitoring Program Search Results: no issues identified
[2016-06-26] MEDS: FERROUS GLUCONATE 324 MG TAB PO SCH ×2 (08:27→12:41)
[2016-06-26] MEDS: TIOTROPIUM BROMIDE 5 PUFF/90 MCG INH INH SCH (08:28)
[2016-06-26] MEDS: ATORVASTATIN 10 MG TAB PO SCH (08:29)
[2016-06-26] MEDS: MULTIVITAMIN TAB PO SCH (08:29)
[2016-06-26] MEDS: PANTOprazole SOD 40 MG TAB PO SCH (08:29)
[2016-06-26] MEDS: DULOXETINE (CYMBALTA) 30 MG CAP PO SCH (08:30)
[2016-06-26] MEDS: DOCUSATE SODIUM 100 MG CAP PO SCH (08:30)
[2016-06-26] MEDS: INSULIN ASPART 100 UNITS/ML 3 ML PEN SC SCH ×2 (08:46→12:45)
--- NOTE | 2016-06-26 08:48 | Hospitalist Progress Note ---
Hospitalist Progress Note Date of Service Jun 26, 2016. Subjective Pt evaluation today including: conversation w/ patient, physical exam, chart review, lab review, review of inpatient medication list Voiding: no voiding problems, no incontinence Patient states she is feeling well today. Denies any pain. Walking the halls w/ out difficulty. She is eating and drinking OK. +flatus postop. No BMs yet. Patient denies any fever, chills, sweats, lightheadedness, dizziness, vision changes, CP, palpitations, edema, SOB, wheezing, cough, abdominal pain, nausea, vomiting, diarrhea, urinary symptoms, melena, numbness/tingling, weakness, muscle/joint pain, anxiety/depression, active bleeding, or new skin discoloration/changes. Medications Current Inpatient Medications Medications (Trade) Dose Ordered Sig/Clary Route Start Time Stop Time Status Last Admin Dose Admin Oxycodone HCl (Roxicodone Immediate Rel Tab) 1 TABLET FOR PAIN RATING... Q4H PRN PO 06/25/16 08:30 07/09/16 08:29 06/25/16 15:47 10 MG Morphine Sulfate (MoRPHine SULFATE INJ) give 2mg for pain 3-6 g... Q1H PRN IV 06/25/16 08:30 07/09/16 08:29 Acetaminophen (Tylenol Tab) 650 mg Q6H PRN PO 06/26/16 04:30 07/26/16 04:29 Magnesium Hydroxide (Milk Of Magnesia Susp) 30 ml Q6H PRN PO 06/25/16 08:30 07/25/16 08:29 Bisacodyl (Dulcolax Supp) 10 mg DAILY PRN CO 06/25/16 08:30 07/25/16 08:29 Docusate Sodium (coLACE CAP) 100 mg BID PO 06/25/16 09:00 07/25/16 08:59 06/25/16 21:03 100 MG Diphenhydramine HCl (Benadryl Inj) 25 mg Q8H PRN IV 06/25/16 08:30 07/25/16 08:29 Al Hydrox/Mg Hydrox/Simethicone (Maalox Max Susp) 15 ml Q4H PRN PO 06/25/16 08:30 07/25/16 08:29 Multivitamins (Multivitamin Tab) 1 tab QAM PO 06/25/16 09:00 07/25/16 08:59 06/25/16 11:58 1 TAB Ondansetron HCl (Zofran Inj) 4 mg Q6H PRN IV 06/25/16 08:30 07/25/16 08:29 Metoclopramide HCl (Reglan Inj) 10 mg Q6H PRN IV 06/25/16 08:30 07/25/16 08:29 Ferrous Gluconate (Ferrous Gluconate Tab) 324 mg TIDM PO 06/25/16 12:30 07/25/16 12:29 06/25/16 18:00 324 MG Pantoprazole Sodium 40 mg 40 mg QAM PO 06/25/16 09:00 07/25/16 08:59 06/25/16 11:58 40 MG Dexamethasone Sodium Phosphate/ Syringe (Decadron Inj/ Syringe) 2 ml @ 1 mls/min TODAY@0730 IV 06/26/16 07:30 06/26/16 10:00 06/26/16 07:21 1 MLS/MIN Albuterol (Ventolin Hfa Inhaler) 2 puffs Q4 PRN INH 06/25/16 08:30 07/25/16 08:29 Atorvastatin Calcium (Lipitor Tab) 10 mg QAM PO 06/25/16 09:00 07/25/16 08:59 06/25/16 12:00 10 MG Duloxetine HCl (Cymbalta Cap) 90 mg QAM PO 06/25/16 09:00 07/25/16 08:59 06/25/16 11:59 90 MG Levothyroxine Sodium (Synthroid Tab) 75 mcg DAILYBB PO 06/26/16 06:00 07/26/16 05:59 06/26/16 05:41 75 MCG Lisinopril (Zestril Tab) 2.5 mg QAM PO 06/25/16 09:00 07/25/16 08:59 Future Hold 06/25/16 11:58 2.5 MG Tiotropium Thorp (Spiriva Handihaler Inhaler) 1 puff QAM INH 06/25/16 09:00 07/25/16 08:59 Insulin Aspart (novoLOG ASPART) SLIDING SCALE G... ACHS SC 4/12/17 12:00 07/25/16 11:59 06/25/16 21:14 3 UNITS Glucose (Glucose 40% Gel) 15-30 GRAMS 15 GRAMS... UD PRN PO 06/25/16 08:45 07/25/16 08:44 Glucose (Glucose Chew Tab) 4-8 Tablets 4 Tabl... UD PRN PO 06/25/16 08:45 07/25/16 08:44 Dextrose (Dextrose 50% 50ML Syringe) 25-50ML OF 50% DW IV FOR... UD PRN IV 06/25/16 08:45 07/25/16 08:44 Glucagon (Glucagon Inj) 1 mg UD PRN SQ 06/25/16 08:45 07/25/16 08:44 Hydralazine HCl (HydrALAZINE INJ) 10 mg Q6H PRN IV. 06/25/16 10:45 07/25/16 10:44 Objective Vital Signs Date Time Temp Pulse Resp B/P Pulse Ox O2 Delivery O2 Flow Rate FiO2 06/26/16 08:08 36.6 90 17 100 Room Air 06/26/16 07:20 Room Air 06/26/16 07:02 36.6 90 17 114/69 100 Room Air 06/26/16 03:30 36.6 79 16 107/70 97 Room Air 06/25/16 23:50 36.6 69 16 92/55 99 Room Air 104/68 06/25/16 23:18 Room Air 06/25/16 18:53 36.8 86 17 112/71 94 Room Air 06/25/16 15:42 36.8 87 17 124/74 94 Nasal Cannula 3.0 06/25/16 15:24 98 Nasal Cannula 2.0 06/25/16 15:15 Nasal Cannula 2.0 06/25/16 12:41 86 16 130/83 98 Nasal Cannula 2.0 06/25/16 11:47 36.9 88 14 110/63 99 Nasal Cannula 06/25/16 10:49 61 16 113/78 98 Nasal Cannula 2.0 06/25/16 10:16 73 16 114/73 100 Nasal Cannula 2.0 06/25/16 09:45 36.5 70 12 109/68 100 Nasal Cannula 2.0 06/25/16 09:45 Room Air 06/25/16 09:45 Nasal Cannula 06/25/16 09:20 36.4 75 15 102/56 98 Nasal Cannula 2 06/25/16 09:10 66 17 104/54 99 Nasal Cannula 2 06/25/16 09:00 66 15 90/63 100 Nasal Cannula 2 06/25/16 08:50 76 14 88/58 100 Nasal Cannula 2 Physical Exam General Appearance: no apparent distress Eyes: normal inspection, PERRL ENT: hearing grossly normal Neck: supple Respiratory/Chest: lungs clear, no respiratory distress, no accessory muscle use Cardiovascular: regular rate, rhythm Abdomen: normal bowel sounds, non tender, soft Extremities: no pedal edema, no calf tenderness Neurologic/Psychiatric: alert, normal mood/affect, oriented x 3 Skin: normal color, warm/dry, no rash Laboratory Results Last 24 Hours Test 06/25/16 12:02 06/25/16 17:09 06/25/16 20:41 06/26/16 05:10 Bedside Glucose 380 mg/dl 248 mg/dl 245 mg/dl White Blood Count 15.12 K/uL Red Blood Count 4.08 M/uL Hemoglobin 12.1 g/dL Hematocrit 35.4 % Mean Corpuscular Volume 86.8 fL Mean Corpuscular Hemoglobin 29.7 pg Mean Corpuscular Hemoglobin Concent 34.2 g/dl Platelet Count 318 K/uL Mean Platelet Volume 10.5 fL Neutrophils (%) (Auto) 74.6 % Lymphocytes (%) (Auto) 16.2 % Monocytes (%) (Auto) 8.7 % Eosinophils (%) (Auto) 0.1 % Basophils (%) (Auto) 0.1 % Neutrophils # (Auto) 11.28 K/uL Lymphocytes # (Auto) 2.45 K/uL Monocytes # (Auto) 1.31 K/uL Eosinophils # (Auto) 0.02 K/uL Basophils # (Auto) 0.02 K/uL RDW Standard Deviation 41.0 fL RDW Coefficient of Variation 12.8 % Immature Granulocyte % (Auto) 0.3 % Immature Granulocyte # (Auto) 0.04 K/uL Prothrombin Time 11.3 SECONDS Prothromb Time International Ratio 1.1 Sodium Level 140 mmol/L Potassium Level 3.9 mmol/L Chloride Level 106 mmol/L Carbon Dioxide Level 28 mmol/L Anion Gap 6.0 mmol/L Blood Urea Nitrogen 12 mg/dl Creatinine 0.76 mg/dl Est Creatinine Clear Calc Drug Dose 77.7 ml/min Estimated GFR () 97.4 Estimated GFR (Non- 84.1 BUN/Creatinine Ratio 15.3 Random Glucose 220 mg/dl Calcium Level 9.1 mg/dl Test 06/26/16 07:54 Bedside Glucose 228 mg/dl Assessment and Plan Patient is a 61 y/o female, with PMHx of anxiety, T2DM, chronic back pain, osteoarthritis, h/o recurrent bronchitis/allergies HTN, dyslipidemia, and hypothyroidism, s/p right total hip arthroplasty on 06/[address] Romero. - DVT prophylaxis, pain management, and PT/OT as per primary team - Follow CBC/PRP -- Leukocytosis on 06/26, likely secondary to postop response- no s/s of infection T2DM: - Hold Januvia 100 mg daily- resume at discharge - BSG ACHS w/ sliding insulin scale - Monitor need for Lantus coverage w/ IV steroids -- Patient was given Lantus 8 u on 06/25 due to hyperglycemia of 380 -- Additional Lantus 8 u on 06/26 due to hyperglycemia and IV Dexamethasone treatment- patient does have insulin w/ sliding scale at home; encouraged to watch sugars closely over the next few days HTN: - Hold Lisinopril pending PRP tomorrow AM- kidney function OK- resume at discharge - Hydralazine PRN Hypothyroidism: Continue Synthroid 75 mcg daily Dyslipidemia: Continue Lipitor 10 mg daily h/o recurrent bronchitis/allergies, ?underlying COPD w/ smoking history: - Continue Spiriva and Ventolin - O2 protocol, wean as tolerated- does NOT wear O2 supplement at home Tobacco abuse: Denies need for nicotine patch- encouraged patient on the importance of avoiding tobacco Anxiety: Continue Cymbalta 60 mg daily GI Prophylaxis: Protonix, Maalox PRN, IV Zofran PRN, Colace and/or Milk of Mag PRN DVT prophylaxis: As per primary team Code Status: LEVEL I, FULL Dispo: Discharge to home today as per primary team- STABLE from medical standpoint
[2016-06-26] MEDS ORDERED: INSULIN GLARGINE PER UNIT 8 UNITS in SYRINGE 0 ML SC ONE (09:15)
--- NOTE | 2016-06-26 10:33 | Anesthesiology Progress Note ---
Anesthesia Post Op Note Date & Time Jun 26, 2016 at 10:32 Vital Signs Pain Intensity: 0.0 Vital Signs Past 12 Hours Date Time Temp Pulse Resp B/P Pulse Ox O2 Delivery O2 Flow Rate FiO2 06/26/16 08:08 36.6 90 17 100 Room Air 06/26/16 07:20 Room Air 06/26/16 07:02 36.6 90 17 114/69 100 Room Air 06/26/16 03:30 36.6 79 16 107/70 97 Room Air 06/25/16 23:50 36.6 69 16 92/55 99 Room Air 104/68 06/25/16 23:18 Room Air Notes Mental Status: alert / awake / arousable, participated in evaluation Pt Amnestic to Procedure: Yes Nausea / Vomiting: adequately controlled Pain: adequately controlled Airway Patency, RR, SpO2: stable & adequate BP & HR: stable & adequate Hydration State: stable & adequate Neuraxial Anesthesia: sensory block resolved Anesthetic Complications: no major complications apparent
[2016-06-26 11:00] VITALS: BP 120/73; PULSE 91; TEMP 36.8; O2SAT 95
[2016-06-26] MEDS: OXYCODONE HCL IR 5 MG TAB (IMMEDIATE RELEASE) PO PRN (13:36)
[2016-06-26] MEDS ORDERED: WARFARIN SOD 5 MG TAB PO SCH (16:00)
== END 2016-06-26 13:35 | disposition home health service (06) | DRG 470 ==
LOC: ENRESERVDT → ENRESERVTM → C.ACU 05:11 → C.3E 06:19
PROVIDERS: ADMIT Physical Medicine & Rehabilitation Sports Medicine; ATTEND Physical Medicine & Rehabilitation Sports Medicine
PROC: 0SR90JA Replacement of Right Hip Joint with Synthetic Substitute, Uncemented, Open Approach (ICD-10-PCS; principal; 2016-06-25 07:00)
DX: M16.11 Unilateral primary osteoarthritis, right hip (principal); J44.0 Chronic obstructive pulmonary disease with (acute) lower respiratory infection; E03.9 Hypothyroidism, unspecified; E78.00 Pure hypercholesterolemia, unspecified; Z96.642 Presence of left artificial hip joint; E11.65 Type 2 diabetes mellitus with hyperglycemia; F41.9 Anxiety disorder, unspecified; I10 Essential (primary) hypertension; G89.29 Other chronic pain; M54.5 Low back pain; F32.9 Major depressive disorder, single episode, unspecified; E78.5 Hyperlipidemia, unspecified; F17.210 Nicotine dependence, cigarettes, uncomplicated; Z98.1 Arthrodesis status; Z87.09 Personal history of other diseases of the respiratory system; Z79.899 Other long term (current) drug therapy; Z79.84 Long term (current) use of oral hypoglycemic drugs

== ENCOUNTER → 2016-07-28 | Outpatient (CLI) | payer OTHER ==
[~2016-07-28] MED LIST changes: -NICO21DI4 TOP; +OXYC-57 PO; +WARF2TAB PO
== END | disposition home or self-care (01) ==
LOC: C.RDSM 11:53
PROVIDERS: ATTEND Physical Medicine & Rehabilitation Sports Medicine
DX: Z47.1 Aftercare following joint replacement surgery (principal); Z96.643 Presence of artificial hip joint, bilateral

== ENCOUNTER → 2016-08-18 | Outpatient (CLI) | payer OTHER | END | disposition home or self-care (01) | LOC: C.RDSM 12:16 | PROVIDERS: ATTEND Physical Medicine & Rehabilitation Sports Medicine | DX: Z96.643 Presence of artificial hip joint, bilateral (principal) ==

== ENCOUNTER → 2016-12-15 | Outpatient (CLI) | payer OTHER | END | disposition home or self-care (01) | LOC: C.RDSM 14:45 | PROVIDERS: ATTEND Physical Medicine & Rehabilitation Sports Medicine | DX: Z96.643 Presence of artificial hip joint, bilateral (principal) ==

== ENCOUNTER → 2017-06-29 | Outpatient (CLI) | payer OTHER ==
[~2017-06-29] MED LIST changes: -OXYC-57 PO; -WARF2TAB PO
== END | disposition home or self-care (01) ==
LOC: C.RDSM 18:48
PROVIDERS: ATTEND Physical Medicine & Rehabilitation Sports Medicine
DX: M16.11 Unilateral primary osteoarthritis, right hip (principal); Z96.643 Presence of artificial hip joint, bilateral